=== PATIENT | female | born 2000 | race Caucasian/White ===

== ENCOUNTER 2024-10-13 07:00 | Inpatient (IN) | payer OTHER ==
[2024-10-13] MEDS ORDERED: Butorphanol 2 MG/ML SDV IVPUSH PRN (07:07)
[2024-10-13] MEDS ORDERED: Carboprost Tromethamine 250 MCG/1 mL Vial IM PRN (07:07)
[2024-10-13] MEDS ORDERED: Lidocaine 1% 50 ML MDV INJECT PRN (07:07)
[2024-10-13] MEDS ORDERED: Methylergonovine 0.2 MG/1 ML Amp IM PRN (07:07)
[2024-10-13] MEDS ORDERED: Sodium Chloride 0.9% 10 ML Syringe FLUSH PRN (07:07)
[2024-10-13] MEDS ORDERED: Sodium Chloride 0.9% 2.5 ML Syringe FLUSH PRN (07:07)
[2024-10-13] MEDS ORDERED: Water For Irrigation,Sterile 1,000 ML Container IRR PRN (07:07)
[2024-10-13] MEDS ORDERED: Sodium Chloride 0.9% 20 ML SDV IV PRN (07:07)
[2024-10-13] MEDS ORDERED: Misoprostol 200 MCG Tab PO PRN (07:07)
[2024-10-13] MEDS ORDERED: Terbutaline 1 MG/ML SDV SUBCUT PRN (07:10)
[2024-10-13] MEDS: Lactated Ringers 1,000 ML IV SCH (07:45)
[2024-10-13 07:57] LABS: HEMATOCRIT 33.6 % (37.0-47.0); HEMOGLOBIN 11.8 g/dL (12.0-16.0); MEAN CORPUSCULAR HGB CONC 35.1 g/dL (32.0-36.0); MEAN CORPUSCULAR VOLUME 85.5 fL (83.0-99.0); MEAN PLATELET VOLUME 10.9 fL (9.4-12.3); PLATELET COUNT,PLT 161 K/uL (150-400); RED BLOOD CELL COUNT 3.93 M/uL (4.10-5.30); WHITE BLOOD CELL COUNT,WBC 9.25 K/uL (3.9-11.3)
[2024-10-13] MEDS: Misoprostol 25 MCG (1/4 of 100 MCG) Tab VAG PRN (08:08)
[2024-10-13] MEDS: Oxytocin/0.9 % Sodium Chloride 30 UNIT/500 ML BAG IV SCH ×2 (13:32→23:00)
[2024-10-13] MEDS: Ropivacaine HCl/PF 200 ML ONE (15:59)
[2024-10-13] MEDS ORDERED: ePHEDrine 50 MG/ML SDV IVPUSH PRN (16:12)
[2024-10-13] MEDS ORDERED: ePHEDrine 50 MG/ML SDV IM PRN (16:12)
[2024-10-13] MEDS ORDERED: Phenylephrine HCl In 0.9% NaCl 1 MG/10 ML Syringe IVPUSH PRN (16:12)
[2024-10-13] MEDS ORDERED: Ropivacaine HCl/PF 400 MG in Premix Bag 1 BAG EPIDUR SCH (16:15)
[2024-10-13] MEDS ORDERED: dexmedeTOMIDine HCl 200 MCG/2 ML SDV EPIDUR SCH (16:15)
[2024-10-13] MEDS ORDERED: Ondansetron 4 MG/2 ML SDV IVPUSH PRN (17:29)
[2024-10-13] MEDS: Phenylephrine HCl In 0.9% NaCl 1 MG/10 ML Syringe ONE (17:30)
[2024-10-13] MEDS: Bupivacaine 0.5% 10 ML SDV ONE (17:31)
[2024-10-13] MEDS: Bupivacaine 0.5% 10 ML SDV INJECT ONE (17:31)
[2024-10-13] MEDS ORDERED: Simethicone 80 MG Tab.Chew PO PRN (20:28)
[2024-10-13] MEDS ORDERED: Docusate Sodium 100 MG Cap PO PRN (20:28)
[2024-10-13] MEDS ORDERED: Lanolin 100% Cream 7 GM Tube TOP PRN (20:28)
[2024-10-13] MEDS ORDERED: diphenhydrAMINE 50 MG Cap PO PRN (20:28)
[2024-10-13] MEDS: Misoprostol 200 MCG Tab VAG PRN (22:35)
[2024-10-13 23:29] LABS: PH,UMBILICAL ARTERIAL 7.25 (7.18-7.38); PH,UMBILICAL VENOUS 7.302 (7.25-7.45)
[2024-10-14] MEDS: Acetaminophen 500 MG Tab PO PRN (00:31)
[2024-10-14] MEDS: Witch Hazel Medicated Pads 40/Jar TOP PRN (00:32)
[2024-10-14] MEDS: Benzocaine/Menthol 20%-0.5% Spray 78 GM Cannister TOP PRN (00:32)
[2024-10-14] MEDS: Ibuprofen 800 MG Tab PO PRN (04:38)
[2024-10-14 07:05] LABS: HEMATOCRIT 28.1 % (37.0-47.0); MEAN CORPUSCULAR HEMOGLOBIN 30.4 pg (28.0-32.0); MEAN CORPUSCULAR HGB CONC 35.6 g/dL (32.0-36.0); MEAN CORPUSCULAR VOLUME 85.4 fL (83.0-99.0); MEAN PLATELET VOLUME 11.2 fL (9.4-12.3); PLATELET COUNT,PLT 130 K/uL (150-400); RED BLOOD CELL COUNT 3.29 M/uL (4.10-5.30); WHITE BLOOD CELL COUNT,WBC 17.26 K/uL (3.9-11.3)
[2024-10-14] MEDS: Ferrous Sulfate 325 MG Tab PO SCH (07:56)
[2024-10-14] MEDS: Prenatal Multivitamin with Calcium/Folic Acid/Iron Tab PO SCH (07:56)
[2024-10-15 07:52] VITALS: BP 136/95; PULSE 75
== END 2024-10-15 15:02 | disposition home or self-care (01) | DRG 806 ==
LOC: MW.OB 07:00 → OBSVTOIN 22:18 → MW.OB 22:18
PROVIDERS: ADMIT Obstetrics & Gynecology; ATTEND Obstetrics & Gynecology
PROC: 10E0XZZ Delivery of Products of Conception, External Approach (ICD-10-PCS; principal; 2024-10-13)
PROC: 0KQM0ZZ Repair Perineum Muscle, Open Approach (ICD-10-PCS; 2024-10-13)
PROC: 10907ZC Drainage of Amniotic Fluid, Therapeutic from Products of Conception, Via Natural or Artificial Opening (ICD-10-PCS; 2024-10-13)
PROC: 3E0P7VZ Introduction of Hormone into Female Reproductive, Via Natural or Artificial Opening (ICD-10-PCS; 2024-10-13)
PROC: 3E0R3BZ Introduction of Anesthetic Agent into Spinal Canal, Percutaneous Approach (ICD-10-PCS; 2024-10-13)
PROC: 00HU33Z Insertion of Infusion Device into Spinal Canal, Percutaneous Approach (ICD-10-PCS; 2024-10-13)
DX: O13.4 Gestational [pregnancy-induced] hypertension without significant proteinuria, complicating childbirth (principal); D62 Acute posthemorrhagic anemia; Z37.0 Single live birth; O90.81 Anemia of the puerperium; O70.1 Second degree perineal laceration during delivery; O62.2 Other uterine inertia; Z3A.37 37 weeks gestation of pregnancy; Z88.0 Allergy status to penicillin
CPT/HCPCS: 01967; 36415; 51702; 59025; 59409; 82803; 85027; 86592; 86850; 86900; 86901; A9270-GY; J0665; J2371; J2590; J2795; J7120